=== PATIENT | male | born 1950 | race Caucasian/White ===

== ENCOUNTER 2016-10-28 20:50 | Emergency (ER) | payer MEDICARE, BC ==
[2016-10-28 21:34] LABS: Hematocrit 37.8 % (42.0-52.0); Hemoglobin 13.5 gm/dL (13.5-18.0); Mean Cell Volume 90.9 fl (78-100); Mean Corpuscular Hemoglobin 32.5 pg (27-31); Mean Corpuscular Hgb Conc 35.7 g/dl (32-36); Mean Platelet Volume 9.1 fl (6.0-9.5); Platelet Count 144 K/mm3 (150-450); Red Blood Count 4.16 M/mm3 (4.7-6.0); Red Cell Distribution Width 12.2 % (11.5-14.0)
[2016-10-28 21:52] LABS: Albumin * 3.5 gm/dl (3.4-5.0); Anion Gap 16.6 mmol/L (6.8-13.8); Bilirubin, Total 0.4 mg/dL (0.0-1.1); Ca. Corrected For Albumin 8.5 mg/dL (8.4-10.2); Calcium * 8.4 mg/dL (7.9-10.9); Potassium 3.6 mmol/L (3.4-4.6); Total Protein 6.6 gm/dL (6.2-8.2)
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
[2016-10-29 07:16] VITALS: BP 140/70
== END 2016-10-28 23:30 | disposition short-term general hospital (02) ==
LOC: ER 20:50 → UNDOADMOB 22:48 → MS 22:48 → ER 23:30
DX: J10.1 Influenza due to other identified influenza virus with other respiratory manifestations (principal); R53.1 Weakness; Z87.891 Personal history of nicotine dependence